=== PATIENT | female | born 1975 | race Caucasian/White ===

== ENCOUNTER 2019-10-30 09:59 | Emergency (ER) | payer MEDICAID ==
[~2019-10-30] VITALS: Ht 167.6 cm; Wt 95.5 kg
[2019-10-30 10:02] VITALS: BP 136/79
== END 2019-10-30 11:41 | disposition short-term general hospital (02) ==
LOC: EMS 10:03
DX: U07.1 COVID-19 (principal); B34.9 Viral infection, unspecified; R03.0 Elevated blood-pressure reading, without diagnosis of hypertension; J02.9 Acute pharyngitis, unspecified
CPT/HCPCS: 87635